=== PATIENT | female | born 1950 | race Caucasian/White ===

== ENCOUNTER 2016-06-13 10:05 | Emergency (ER) | payer BC, OTHER ==
[2016-06-13] MEDS ORDERED: DOXYcycline CAP(*) 100 MG PO ONE (11:47)
[2016-06-13 12:02] VITALS: BP 170/88
--- NOTE | 2016-06-13 12:02 | UC ---
Skin Complaint HPI - HPI Summary HPI Summary: TICK FOUND IN (RIGHT ANTERIOR) NECK YESTERDAY AFTER TAKIN DOGS FOR WALK IN [place]. TRIED TO GET TICK OUT, BUT SOME PIECES ARE STILL IN THERE. REDNESS AROUND AREA - History of Current Complaint Chief Complaint: UCSkin Time Seen by Provider: 06/13/16 11:29 Stated Complaint: TICK Hx Obtained From: Patient Hx Last Menstrual Period: n/a Onset/Duration: Sudden Onset, Lasting Hours, Still Present Skin Exposure Onset/Duration: Hours Ago Onset Severity: Mild Current Severity: Mild Location: Discrete - RIGHT ANTERIOR NECK Character: Redness Aggravating: Nothing Alleviating: Nothing Associated Signs & Symptoms: Positive: Rash - MILD ERRETHEMATOUS RASH SURROUNDING AREA WHERE TICK BEGAN TO EMBED, Tenderness Related History: Insect Bite/Sting, Possible Reaction to: Insect - Allergy/Home Medications Allergies/Adverse Reactions: Allergies Allergy/AdvReac Type Severity Reaction Status Date / Time Sulfa Antibiotics Allergy Unknown Unknown Verified 06/13/16 10:47 Reaction Details Home Medications: Home Medications Cholecalciferol [Vitamin D] 5,000 unit PO DAILY 06/13/16 [History Confirmed ] Lisinopril TAB* [Prinivil TAB*] 1 tab PO BID 06/13/16 [History Confirmed ] Gypsum-3 Fatty Acids [Fish Oil] 1,000 mg PO DAILY 06/13/16 [History Confirmed ] amLODIPine TAB* [Norvasc 5 mg TAB*] 5 mg PO DAILY 06/13/16 [History Confirmed ] Review of Systems Constitutional: Negative Skin: Rash Eyes: Negative ENT: Negative Respiratory: Negative Cardiovascular: Negative Gastrointestinal: Negative Genitourinary: Negative Motor: Negative Neurovascular: Negative Musculoskeletal: Negative Neurological: Negative Psychological: Negative All Other Systems Reviewed And Are Negative: Yes PMH/Surg Hx/FS Hx/Imm Hx Previously Healthy: Yes Cardiovascular History Of: Reports: Hypertension - Surgical History Surgical History: None - Family History Known Family History: Negative: Diabetes - Social History Occupation: Employed Full-time Lives: With Family Alcohol Use: None Substance Use Type: None Smoking Status (MU): Former Smoker Physical Exam Triage Information Reviewed: Yes Appearance: Well-Appearing, No Pain Distress, Well-Nourished Vital Signs: Initial Vital Signs Temp 97.6 F 06/13/16 10:40 Pulse 63 06/13/16 10:40 Resp 20 06/13/16 10:40 BP 134/71 06/13/16 10:40 Vital Signs Reviewed: Yes Eye Exam: Normal ENT Exam: Normal ENT: Positive: Normal ENT inspection, Hearing grossly normal, Pharynx normal, TMs normal Dental Exam: Normal Neck: Positive: Supple, Nontender, No Lymphadenopathy, Other: - TICK FRAGMENTS EMBEDDED IN RIGHT ANTERIOR NECK; TICK FRAGMENTS REMOVED USING SPLINTER FORCEPS Respiratory Exam: Normal Respiratory: Positive: Chest non-tender, Lungs clear, Normal breath sounds, No respiratory distress, No accessory muscle use Cardiovascular Exam: Normal Cardiovascular: Positive: RRR, No Murmur, Pulses Normal Abdominal Exam: Normal Abdomen Description: Positive: Nontender, No Organomegaly Musculoskeletal Exam: Normal Musculoskeletal: Positive: Strength Intact, ROM Intact Neurological Exam: Normal Psychological Exam: Normal Psychological: Positive: Normal Response To Family Skin: Positive: Other - TICK FRAGMENTS EMBEDDED IN RIGHT ANTERIOR NECK; TICK FRAGMENTS REMOVED USING SPLINTER FORCEPS Course/Dx - Differential Diagnoses - Skin Complaint Differential Diagnoses: Abscess, Cellulitis, Tick Born Illness - Diagnoses Provider Diagnoses: TICK BITE RIGHT ANTERIOR NECK. TICK REMOVAL. LYME PROPHYLAXIS Discharge - Discharge Plan Condition: Stable Disposition: HOME Patient Education Materials: Tick Bite (ED) Referrals: Demetrio Mina MD [Primary Care Provider] -
== END 2016-06-13 12:03 | disposition home or self-care (01) ==
LOC: UCCORT 10:05
DX: S10.86XA Insect bite of other specified part of neck, initial encounter (principal); X58.XXXA Exposure to other specified factors, initial encounter; Y93.K1 Activity, walking an animal; Y92.821 Forest as the place of occurrence of the external cause; R21 Rash and other nonspecific skin eruption; I10 Essential (primary) hypertension; Z88.2 Allergy status to sulfonamides; Z87.891 Personal history of nicotine dependence
CPT/HCPCS: 99212; A9270-GY; G0463

== ENCOUNTER 2016-10-14 10:10 | Emergency (ER) | payer BC ==
[2016-10-14 10:41] VITALS: BP 153/73
--- NOTE | 2016-10-14 11:45 | ED ---
Neck Pain - HPI Summary HPI Summary: 66 y/o female PMHX of MS and osteoporosis presents to the urgent care c/o neck pain and Rt shoulder pain since Friday. She helped her lift some heavy stones on Friday. When she woke up Friday her shoulder pain was radiating to the neck, unable to move her neck on that side. Pain is 8/10 w/ movement and 4/10 at rest. Pt took tylenol yesterday to relieve symptoms. Pt denies Fever, N/V/D, dizziness, MCKEON, SOB, chest pain, Pt has not taking her HTN medication today - History of Current Complaint Chief Complaint: UCGeneralIllness Stated Complaint: RIGHT SHOULDER & NECK PAIN Time Seen by Provider: 10/14/16 10:47 Hx Obtained From: Patient Hx Last Menstrual Period: n/a Onset/Duration Of Injury/Symptoms: Days Mechanism Of Injury: Other - lifting heavy stones Timing: Constant, Lasting Days Onset/Duration: Gradual Onset, Started days ago Severity Initially: Mild Pain Intensity: 8 Pain Scale Used: 0-10 Numeric Location: Discrete At: - RT shoulder and RT side of neck Character: Spasmotic Aggravating Factors: Movement Alleviating Factors: OTC Meds Associated Signs & Symptoms: Positive: Negative. Negative: Swelling, Fever, Weakness, Headache, Paresthesia - Risk Factors Meningitis Risk Factors: Negative - Allergies/Home Medications Allergies/Adverse Reactions: Allergies Allergy/AdvReac Type Severity Reaction Status Date / Time Sulfa Antibiotics Allergy Unknown Unknown Verified 10/14/16 10:28 Reaction Details PMH/Surg Hx/FS Hx/Imm Hx Previously Healthy: Yes Endocrine/Hematology History: Reports: Other Endocrine/Hematological Disorders - Osteoporosis, dyslipidemia Cardiovascular History: Reports: Hx Atrial Fibrillation, Hx Hypertension Musculoskeletal History: Reports: Other Musculoskeletal History - MS Infectious Disease History: Yes Infectious Disease History: Reports: Hx Shingles Denies: Traveled Outside the [place] in Last 30 Days - Family History Known Family History: Positive: Cardiac Disease, Hypertension Negative: Diabetes - Social History Occupation: Retired Lives: With Family Alcohol Use: None Substance Use Type: Reports: None Smoking Status (MU): Former Smoker Review of Systems Constitutional: Negative Positive: Fever Eyes: Negative ENT: Negative Cardiovascular: Negative Respiratory: Negative Gastrointestinal: Negative Genitourinary: Negative Positive: Other - RT side neck pain with RT shoulder pain Skin: Negative Neurological: Negative Psychological: Normal All Other Systems Reviewed And Are Negative: Yes Physical Exam Triage Information Reviewed: Yes Vital Signs On Initial Exam: Initial Vitals Temp Pulse Resp BP Pulse Ox 98.6 F 56 14 153/73 100 10/14/16 10:22 10/14/16 10:22 10/14/16 10:22 10/14/16 10:22 10/14/16 10:22 Appearance: Positive: Well-Appearing, No Pain Distress, Well-Nourished Skin: Positive: Warm, Skin Color Reflects Adequate Perfusion, Dry Head/Face: Positive: Normal Head/Face Inspection Eyes: Positive: Normal, EOMI, NORA, Conjunctiva Clear ENT: Positive: Normal ENT inspection, Hearing grossly normal, Pharynx normal, TMs normal Neck: Positive: Supple, Nontender, No Lymphadenopathy Respiratory/Lung Sounds: Positive: Clear to Auscultation, Breath Sounds Present Cardiovascular: Positive: Normal, RRR, Pulses are Symmetrical in both Upper and Lower Extremities, S1, S2 Abdomen Description: Positive: Nontender, No Organomegaly, Soft. Negative: CVA Tenderness (R), CVA Tenderness (L) Bowel Sounds: Positive: Present Musculoskeletal: Positive: Limited @ - RT side of Neck with limited ROM due to pain, mild swelling w/ tenderness over the RT trapezoid muscle. FROM of RT shoulder. No erythema or swelling observed on Rt shoulder. Sensation and pulses intact over the RT upper extremity, positive reflexes. Neurological: Positive: Normal, Sensory/Motor Intact, Alert, Oriented to Person Place, Time, CN Intact II-III, Reflexes Intact, Normal Gait Psychiatric: Positive: Normal Diagnostics - Vital Signs Vital Signs Temp Pulse Resp BP Pulse Ox 10/14/16 10:22 98.6 F 56 14 153/73 100 - Laboratory Lab Statement: Any lab studies that have been ordered have been reviewed, and results considered in the medical decision making process. Neck Course/Dx - Course Course Of Treatment: 66 y/o female PMHX of MS and osteoporosis presents to the urgent care c/o neck pain and Rt shoulder pain since Friday. She helped her lift some heavy stones on Friday. When she woke up Friday her shoulder pain was radiating to the neck, unable to move her neck on that side. Pain is 8/10 w/ movement and 4/10 at rest. Pt took tylenol yesterday to relieve symptoms. Pt denies Fever, N/V/D, dizziness, MCKEON, SOB, chest pain,HX obtained. Pt with acute torticollis. PT given toradol IM inj toalleviate symptoms. PT's shoulder immobilized to alleviate her pain in RT side of neck. Pt felt better. Pt Rx Robaxin PO and tramadol PO to alleviate symtoms. Advised placement of ice. Given PT referral for further evaluation and treatment. If not improvementof symptoms to f/u with her PCP. - Diagnoses Differential Dx/HQI/PQRI: Positive: Arthritis, Dislocation, Sprain, Strain Provider Diagnoses: Acute torticollis Discharge - Discharge Plan Condition: Stable Disposition: HOME Prescriptions: Methocarbamol [Robaxin-750 MG TAB] 750 mg PO QID #12 tab traMADol TAB* [Ultram*] 50 mg PO Q8H PRN #9 tab MDD 400 PRN Reason: Pain Patient Education Materials: Cervical Strain (ED) Referrals: Demetrio Mina MD [Primary Care Provider] - Additional Instructions: 1- Please take medications as directed to alleviate muscle spasm and pain. 2-Keep shoulder immobilized , apply warm compresses 3-F/u PT referral for further evaluation and treatment 4-The medication can cross react with your antidepressant, go to the ER or return to the clinic if you develop fever, agitation, sweating, tachycardia, Nausea, vomiting , confusion or tremors
== END 2016-10-14 11:46 | disposition home or self-care (01) ==
LOC: UCCORT 10:10
DX: M43.6 Torticollis (principal); Z88.2 Allergy status to sulfonamides
CPT/HCPCS: 99213; G0463